=== PATIENT | female | born 1990 | race Caucasian/White ===

== ENCOUNTER 2022-01-06 18:36 | Emergency (ER) | payer MEDICAID ==
[~2022-01-06] VITALS: Ht 154.9 cm; Wt 62.0 kg
[~2022-01-06 18:36] MED LIST: FE300LUD PO; IBUP-2030 PO; PNV1TABL50 MT
[2022-01-06 18:37] VITALS: BP 111/69
[2022-01-06] MEDS ORDERED: ONDANSETRON HCL 4MG/2ML INJ IM ONE (23:30)
[2022-01-06] MEDS ORDERED: ACETAMINOPHEN 325MG TABLET PO PRN (23:30)
[2022-01-07 00:24] LABS: CLARITY URINE CLOUDY (CLEAR); COLOR URINE YELLOW (YELLOW); KETONES URINE NEGATIVE (NEGATIVE); LEUKOCYTE ESTERASE URINE NEGATIVE (NEGATIVE); NITRITE URINE NEGATIVE (NEGATIVE); OCCULT BLOOD URINE NEGATIVE (NEGATIVE); PROTEIN URINE NEGATIVE (NEGATIVE); SPECIFIC GRAVITY URINE 1.025 (1.005-1.030)
[2022-01-07 01:29] LABS: BASOPHILS % 0.3 % (0.0-2.0); EOSINOPHILS % 0.5 % (0.0-5.0); HEMATOCRIT. 33.8 % (36.0-48.0); HEMOGLOBIN. 11.4 g/dL (12.0-16.0); LYMPHOCYTES % 21.1 % (20.0-50.0); MEAN CORPUSCULAR HEMOGLOBIN 29.4 pg (28.0-32.0); MEAN CORPUSCULAR VOLUME 87.5 fL (81.0-99.0); MEAN PLATELET VOLUME 8.7 fl (7.4-10.4); MONOCYTES % 10.7 % (2.0-8.0); NEUTROPHILS % 67.4 % (40.0-76.0); PLATELET 312 x1000/uL (130-400); RED BLOOD CELL COUNT 3.87 mill/uL (4.2-5.4); RED CELL DISTRIBUTION WIDTH 13.6 % (11.6-14.6)
[2022-01-07 01:30] LABS: CHLORIDE 107 mEq/L (98-107)
[2022-01-07 01:51] LABS: B-HCG QUANTITATIVE 115458 mIU/mL (<3)
== END 2022-01-07 04:18 | disposition left against medical advice (07) ==
LOC: ER 18:36
DX: Z00.00 Encounter for general adult medical examination without abnormal findings (principal); Z53.21 Procedure and treatment not carried out due to patient leaving prior to being seen by health care provider
CPT/HCPCS: 36415; 76801; 76817; 80053; 81003; 81025; 84702; 85025; 96372; J2405; 99284

== ENCOUNTER 2022-07-23 20:10 | Observation (INO) | payer MEDICAID ==
[~2022-07-23] VITALS: Ht 154.9 cm; Wt 75.7 kg
== END 2022-07-23 23:55 | disposition home or self-care (01) ==
LOC: 8 EST LDRP 20:10
PROVIDERS: ADMIT Obstetrics & Gynecology; ATTEND Obstetrics & Gynecology
DX: O36.8130 Decreased fetal movements, third trimester, not applicable or unspecified (principal); O26.873 Cervical shortening, third trimester; Z3A.39 39 weeks gestation of pregnancy
CPT/HCPCS: 59025; 76805; 76818; G0378